=== PATIENT | female | born 1935 | race Caucasian/White ===

== ENCOUNTER 2018-04-30 16:30 | Outpatient (CLI) | payer MEDICARE ==
--- NOTE | 2018-04-30 18:05 | RAD ---
RADIOGRAPH CERVICAL SPINE 3 VIEWS: 04/30/18 HISTORY: 83-year-old female with left sided cervicalgia. COMPARISON: None. TECHNIQUE: AP, lateral, and swimmer's views. There is no odontoid view or open mouth view. FINDINGS: Vertebral body heights are maintained. There is multilevel severe bilateral degenerative facet diseas e. Grade I anterolisthesis of C3 on C4, and grade I anterolisthesis of C7 on T1, presumably due to th e degenerative facet disease at those levels. Moderate to severe degenerative disc changes at C4-5, C 5-6, and C6-7, with high grade disc space narrowing and anterior osteophytes protruding into the prev ertebral space. No prevertebral soft tissue swelling. Vertebral body heights are maintained. 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 JN [] POS: EUGENIE
== END 2018-04-30 16:31 | disposition home or self-care (01) ==
LOC: SCSRAD 16:30
PROVIDERS: ATTEND Internal Medicine
DX: M54.2 Cervicalgia (principal); M50.321 Other cervical disc degeneration at C4-C5 level; M47.892 Other spondylosis, cervical region
CPT/HCPCS: 72040

== ENCOUNTER 2019-04-10 15:36 | Outpatient (CLI) | payer MEDICARE, OTHER ==
--- NOTE | 2019-04-10 16:25 | RAD ---
PA AND LATERAL VIEWS CHEST: 04/10/19 HISTORY: Shortness of breath on exertion. FINDINGS: The heart size is normal. The aorta is tortuous. The lungs are well expanded without lobar consolida tion, pneumothoraces, or pleural effusions. There are degenerative changes in the spine. IMPRESSION: No radiographic evidence of acute cardiopulmonary process. POS: OFF
== END 2019-04-10 15:37 | disposition home or self-care (01) ==
LOC: SCSRAD 15:36
PROVIDERS: ATTEND Internal Medicine
DX: R06.00 Dyspnea, unspecified (principal)
CPT/HCPCS: 71046

== ENCOUNTER 2019-04-18 14:41 | Outpatient (CLI) | payer MEDICARE, OTHER | END 2019-04-18 14:42 | disposition home or self-care (01) | LOC: CP 14:41 | PROVIDERS: ATTEND Internal Medicine | DX: R06.00 Dyspnea, unspecified (principal) | CPT/HCPCS: 94010; 94727; 94729 ==